=== PATIENT | female | born 1955 | race Caucasian/White ===

== ENCOUNTER 2017-04-25 11:33 | Emergency (ER) | payer BC, OTHER ==
[2017-04-25] VITALS (8 sets, daily range): BP systolic 135–177; BP diastolic 75–97; PULSE 80–88; RESP 14–17; TEMP 98.8; O2SAT 97–100
[~2017-04-25] VITALS: Ht 165.1 cm; Wt 75.0 kg
[~2017-04-25 11:33] MED LIST: CELE200 PO; CYCL-36 PO; EMBREL SQ; LORC10TA PO; LORT5TAB PO; METH2.5 PO; OYST500T77 PO; SOMA350T PO; SYNT175T PO; TAB-TAB PO
[2017-04-25] MEDS ORDERED: LORazepam 2 MG/ML VIAL IVS ONE (11:45)
[2017-04-25] MEDS ORDERED: SODIUM CHLORIDE 0.9% FLUSH 10 ML FLUSH IVF PRN (11:45)
--- NOTE | 2017-04-25 11:51 | PD ---
HPI . Altered mental status Chief Complaint: Altered mental status Time Seen by Provider: 11:39 Travel History International Travel<30 days: No Contact w/Intl Traveler<30days: No History of Present Illness HPI Patient is brought to us by [facility] following an alteration in her level of consciousness while in Bible study this morning. The medics state that the patient reportedly had a very slow and controlled fall to the ground. Since then, she has been lying on the ground with her eyes twitching. EMS reports that her behavior has been pretty much the same since that time they picked her up until the time they've dropped her off. The patient has actually started answering some questions and admits to the nurse that she took a handful of Benadryl, probably about 6, in a suicide attempt. PFSH Past Medical History Autoimmune Disease: Yes (RA) Thyroid Disease: Yes Past Surgical History Section: Yes Oral Surgery: Yes (WISDOM TEETH) Social History Alcohol Use: No Tobacco Use: No Substance Use: No Allergies-Medications (Allergen,Severity, Reaction): Coded Allergies: Penicillin (Verified Allergy, Severe, HIVES, 12/14/08) Reported Meds & Prescriptions Reported Meds & Active Scripts Active Reported Refresh Opth Drops (Polyvinyl Alcohol-Povidone Opth Drops) 1.4-0.6% Drops 1-2 Drop EACH EYE PRN PRN Restasis Opth 0.05% (Cyclosporine Opth 0.05%) 0.05% Emul 1 Drop EACH EYE BID Humira 2-Pack Inj (Adalimumab 2-Pack Inj) 40 Mg/0.8 Ml Syr 40 Mg SQ Q14D Methotrexate 2.5 Mg Tab 5 Tab PO WEEKLY [place]-3 Fish Oil/Vitamin (Fish Oil-Cholecalciferol) 1,000-1,000 Mg Cap 1 Cap PO TID Aspirin EC (Aspirin) 81 Mg Tabdr 81 Mg PO DAILY Probiotic (Lactobacillus Acidophilus) 1 Cap Cap 1 Cap PO BID Multiple Vitamin 1 Tab 1 Tab PO DAILY Losartan (Losartan Potassium) 50 Mg Tab 50 Mg PO DAILY Folic Acid 400 Mcg Tab 800 Mcg PO DAILY Mobic (Meloxicam) 15 Mg Tab 15 Mg PO DAILY Synthroid (Levothyroxine Sodium) 100 Mcg Tab 100 Mcg PO DAILY Review of Systems ROS Limitations: Poor Historian Psychiatric: Positive: Depression, Suicidal Ideations Physical Exam Narrative GENERAL: Patient is lying on the stretcher with her eyes twitching. She is cooperative with parts of her evaluation such as closing her mouth around the thermometer and assisting with removal of her clothing. SKIN: Warm and dry. HEAD: Atraumatic. Normocephalic. EYES: Pupils equal and round. ENT: No nasal bleeding or discharge. Mucous membranes pink and moist. NECK: Trachea midline. Neck is supple. CARDIOVASCULAR: Regular rate and rhythm. Heart sounds are normal. RESPIRATORY: No accessory muscle use. Lungs sound clear. GASTROINTESTINAL: Abdomen soft, non-tender, nondistended. MUSCULOSKELETAL: No obvious deformities. No edema. NEUROLOGICAL: She is moving all 4 extremities equally. PSYCHIATRIC: She reports suicidal ideation to the nurse. Data Data Last Documented VS Vital Signs Date Time Temp Pulse Resp B/P Pulse Ox O2 Delivery O2 Flow Rate FiO2 04/25/17 13:29 80 16 162/80 100 Room Air 04/25/17 11:40 98.8 Orders Complete Blood Count With Diff (04/25/17 11:39) Basic Metabolic Panel (Bmp) (04/25/17 11:39) Alcohol (Ethanol) (04/25/17 11:39) Drug Screen, Random Urine (04/25/17 11:39) Ct Brain W/O Iv Contrast(Rout) (04/25/17 ) Ecg Monitoring (04/25/17 11:39) Iv Access Insert/Monitor (04/25/17 11:39) Oximetry (04/25/17 11:39) Sodium Chloride 0.9% Flush (Ns Flush) (04/25/17 11:45) Lorazepam Inj (Ativan Inj) (04/25/17 11:45) Urinalysis - C+S If Indicated (04/25/17 11:39) Sodium Chlor 0.9% 1000 Ml Inj (Ns 1000 M (04/25/17 12:00) Basic Metabolic Panel (Bmp) (04/25/17 13:26) Urinary Catheter Management SHERRY.Q8H (04/25/17 13:51) Labs Laboratory Tests Test 04/25/17 04/25/17 04/25/17 11:58 13:01 13:37 White Blood Count 7.0 TH/MM3 Red Blood Count 4.84 MIL/MM3 Hemoglobin 14.3 GM/DL Hematocrit 42.9 % Mean Corpuscular Volume 88.7 FL Mean Corpuscular Hemoglobin 29.7 PG Mean Corpuscular Hemoglobin 33.4 % Concent Red Cell Distribution Width 13.5 % Platelet Count 220 TH/MM3 Mean Platelet Volume 8.1 FL Neutrophils (%) (Auto) 75.9 % Lymphocytes (%) (Auto) 14.6 % Monocytes (%) (Auto) 6.5 % Eosinophils (%) (Auto) 1.6 % Basophils (%) (Auto) 1.4 % Neutrophils # (Auto) 5.3 TH/MM3 Lymphocytes # (Auto) 1.0 TH/MM3 Monocytes # (Auto) 0.5 TH/MM3 Eosinophils # (Auto) 0.1 TH/MM3 Basophils # (Auto) 0.1 TH/MM3 CBC Comment DIFF FINAL Differential Comment Sodium Level 129 MEQ/L 137 MEQ/L Potassium Level 6.0 MEQ/L 3.8 MEQ/L Chloride Level 98 MEQ/L 103 MEQ/L Carbon Dioxide Level 22.4 MEQ/L 24.3 MEQ/L Anion Gap 9 MEQ/L 10 MEQ/L Blood Urea Nitrogen 8 MG/DL 7 MG/DL Creatinine 0.70 MG/DL 0.56 MG/DL Estimat Glomerular Filtration 85 ML/MIN 110 ML/MIN Rate Random Glucose 110 MG/DL 102 MG/DL Calcium Level 8.5 MG/DL 8.8 MG/DL Ethyl Alcohol Level LESS THAN 3 MG/DL Urine Collection Type CATH Urine Color STRAW Urine Turbidity CLEAR Urine pH 6.5 Urine Specific [place] 1.003 Urine Protein NEG mg/dL Urine Glucose (UA) NEG mg/dL Urine Ketones NEG mg/dL Urine Occult Blood TRACE Urine Nitrite NEG Urine Bilirubin NEG Urine Leukocyte Esterase TRACE Urine Squamous Epithelial 0-5 /hpf Cells Microscopic Urinalysis Comment CULT NOT INDICATED Urine Opiates Screen NEG Urine Barbiturates Screen NEG Urine Amphetamines Screen NEG Urine Benzodiazepines Screen NEG Urine Cocaine Screen NEG Urine Cannabinoids Screen NEG MDM Medical Decision Making Medical Screen Exam Complete: Yes Emergency Medical Condition: Yes Differential Diagnosis Differential diagnosis of altered mental status includes but is not limited to infection, electrolyte abnormality, neurological event, intoxication Narrative Course Patient presents to us via [facility] for acutely altered mental status. She reportedly suffered a slow, controlled fall to the ground while at [employer]. Since then, she has been lying with her eyes closed and twitching. She is now cooperating some and admits that she took Benadryl in a suicide attempt. The patient will be medically cleared and then referred to psychiatry for a psych screening exam. The nurse has subsequently learned that the Benadryl ingestion was actually last night. Last Impressions Head CT 04/25/17 0000 Signed Impressions: Service Date/Time: Tuesday, April 25, 2017 11:54 - CONCLUSION: 1. No focal or acute intracranial hemorrhage. 2. Old infarct in the right basal ganglia. Jamie Beckham MD CBC & BMP Diagram 04/25/17 11:58 Her initial attack as he emerged 6.0 did not make sense. She does not have any reason to have hyperkalemia. Therefore, a BMP was rechecked. 04/25/17 13:37 Drug screen and alcohol level are negative. The patient is now awake and alert and fully oriented. She states that she no longer feels suicidal. She is willing to contract with me for her safety. She further reports that she will have friends staying with her tonight. She does not want us to tell friends that she took an overdose last night. The patient reports that she has been having problems with urinary retention. She would like for us to leave the catheter in place. Diagnosis Primary Impression: Altered mental status Qualified Code: R41.82 - Altered mental status, unspecified altered mental status type Additional Impression: Urinary retention Patient Instructions: Acute Urinary Retention in Women (ED), Altered Mental Status (ED), General Instructions Disposition: 01 DISCHARGE HOME Condition: Stable Sophia Wheeler MD Apr 25, 2017 11:51
[2017-04-25] MEDS ORDERED: SODIUM CHLOR 0.9% 1000 ML INJ 1,000 ML IV ONE (12:00)
[2017-04-25 12:04] LABS: AUTOMATED NEUTROPHIL # 5.3 TH/MM3 (1.8-7.7); BASOPHIL # 0.1 TH/MM3 (0-0.2); BASOPHIL % 1.4 % (0.0-2.0); EOSINOPHIL # 0.1 TH/MM3 (0-0.4); EOSINOPHIL % 1.6 % (0.0-4.0); HEMATOCRIT 42.9 % (35.0-46.0); HEMO FLAGS DIFF FINAL; LYMPH % 14.6 % (9.0-44.0); MEAN CELL VOLUME 88.7 FL (80.0-100.0); MEAN CORPUSCULAR HEMOGLOBIN 29.7 PG (27.0-34.0); MEAN CORPUSCULAR HGB CONC 33.4 % (32.0-36.0); MONO % 6.5 % (0.0-8.0); NEUT % 75.9 % (16.0-70.0); PLATELET COUNT 220 TH/MM3 (150-450); RED BLOOD COUNT 4.84 MIL/MM3 (4.00-5.30); RED CELL DISTRIBUTION WIDTH 13.5 % (11.6-17.2)
[2017-04-25 12:15] LABS: CHLORIDE 98 MEQ/L (98-107); SODIUM (NA) 129 MEQ/L (136-145)
[2017-04-25 12:18] LABS: ANION GAP 9 MEQ/L (5-15); BICARBONATE 22.4 MEQ/L (21.0-32.0); BLOOD UREA NITROGEN 8 MG/DL (7-18)
[2017-04-25 12:21] LABS: GLOMERULAR FILTRATION RATE 85 ML/MIN (>89)
[2017-04-25] MEDS ORDERED: ASPI81TA11 PO (12:31)
[2017-04-25] MEDS ORDERED: MOBI15TA PO (12:31)
[2017-04-25] MEDS ORDERED: LEVO.1 PO (12:31)
[2017-04-25] MEDS ORDERED: HUMI40KI SQ (12:31)
[2017-04-25] MEDS ORDERED: MULTTAB67 PO (12:31)
[2017-04-25] MEDS ORDERED: METH2.5T PO (12:31)
[2017-04-25] MEDS ORDERED: LACTCAP8 PO (12:31)
[2017-04-25] MEDS ORDERED: FOLI400T PO (12:31)
[2017-04-25] MEDS ORDERED: REFRDRO EACH EYE (12:31)
[2017-04-25] MEDS ORDERED: REST0.05 EACH EYE (12:31)
[2017-04-25] MEDS ORDERED: OMEGCAP PO (12:31)
[2017-04-25] MEDS ORDERED: LOSA50TA PO (12:31)
--- NOTE | 2017-04-25 12:33 | RADRPT ---
EXAM DATE/TIME: 04/25/2017 11:54 [facility] COMPARISON: No previous studies available for comparison. INDICATIONS : Altered mental status. Syncopal episode. RADIATION DOSE: 62.07 CTDIvol (mGy) MEDICAL HISTORY : None SURGICAL HISTORY : section. ENCOUNTER: Initial ACUITY: 1 day PAIN SCALE: 0/10 LOCATION: cranial TECHNIQUE: Multiple contiguous axial images were obtained of the head. Using automated exposure control and adj ustment of the mA and/or kV according to patient size, radiation dose was kept as low as reasonably a chievable to obtain optimal diagnostic quality images. DICOM format image data is available electro nically for review and comparison. FINDINGS: CEREBRUM: The ventricles are normal for age. No evidence of midline shift, mass lesion, hemorrhage or acute in farction. There is an old infarct in the right basal ganglia. No extra-axial fluid collections are s een. POSTERIOR FOSSA: The cerebellum and brainstem are intact. The 4th ventricle is midline. The cerebellopontine angle i s unremarkable. EXTRACRANIAL: The visualized portion of the orbits is intact. SKULL: The calvaria is intact. No evidence of skull fracture. CONCLUSION: 1. No focal or acute intracranial hemorrhage. 2. Old infarct in the right basal ganglia. Jamie Beckham MD on April 25, 2017 at 12:29 Board Certified Radiologist. This report was verified electronically.
[2017-04-25 13:07] LABS: BLOOD, URINE TRACE (NEG); GLUCOSE,URINE NEG (NEG); KETONE, URINE NEG (NEG); NITRITE,URINE NEG (NEG); PH, URINE 6.5 (5.0-8.5)
[2017-04-25 13:09] LABS: METHOD OF COLLECTION CATH; URINE COLOR STRAW (YELLW/STRAW)
[2017-04-25 13:11] LABS: COMMENT (UR) CULT NOT INDICATED; CULTURE IF INDICATED CULT NOT INDICATED; SQUAMOUS EPITHELIAL CELL URINE 0-5 /hpf (0-5)
[2017-04-25 13:31] LABS: AMPHETAMINE, URINE NEG (NEG)
[2017-04-25 13:33] LABS: BARBITURATES, URINE NEG (NEG)
[2017-04-25 13:37] LABS: COCAINE, URINE NEG (NEG)
[2017-04-25 13:58] LABS: BICARBONATE 24.3 MEQ/L (21.0-32.0); POTASSIUM 3.8 MEQ/L (3.5-5.1)
[2017-04-26 06:38] VITALS: BP 141/77; PULSE 86; RESP 18; O2SAT 97
--- NOTE | 2017-04-26 12:58 | PD ---
History of Present Illness Chief Complaint: Syncope/Near-Syncope Time Seen by Provider: 10:00 Travel History International Travel<30 Days: No Contact w/Intl Traveler<30days: No Known affected area: No Legal Status Legal Status: Rodriguez Act Rodriguez Act Signed By: DR BASS History of Present Illness: This is a 62-year-old female with a recent history of taking approximately 625 mg Benadryl tablets the night before last. She states she did this not as a suicide attempt but to help her stop leaking urine. Patient reports she had a urinary tract infection in the last several weeks and since then she is having urinary leakage. She is seeing a urologist but she does not understand why this is happening and what needs to occur to treat it. She states she was hot and sikhism yesterday and reports a near syncopal episode. This physician read the emergency department record that insinuates the patient was overly dramatic in her behavior. At this time, however, the patient is calm, pleasant and cooperative. She is answering questions and describing her dissatisfaction with her physical issues. She denies any suicidal or homicidal ideation, plan or intent. She does admit to having those thoughts in the recent past. Her cognition is intact and she has no psychosis. She is verbally rebecca for safety. Her only family member is in [place]. She would like to return to her urologist as soon as possible. PFSH Past Medical History Arthritis: Yes (RA) Autoimmune Disease: Yes (RA) Genitourinary: Yes (TREATED FOR URINARY RETENTION) Immunizations Current: Yes Thyroid Disease: Yes Past Surgical History Section: Yes Oral Surgery: Yes (WISDOM TEETH) Psychiatric History Psychiatric History Hx Psychiatric Treatment: DENIED History of Inpatient Treatment: No Guns or firearms in home: No Social History Hx Alcohol Use: No Hx Tobacco Use: No Hx Substance Use: No Hx of Substance Use Treatment: No Allergies-Medications (Allergen,Severity, Reaction): Coded Allergies: Penicillin (Verified Allergy, Severe, HIVES, 04/25/17) Reported Meds & Prescriptions Reported Meds & Active Scripts Active Reported Refresh Opth Drops (Polyvinyl Alcohol-Povidone Opth Drops) 1.4-0.6% Drops 1-2 Drop EACH EYE PRN PRN Restasis Opth 0.05% (Cyclosporine Opth 0.05%) 0.05% Emul 1 Drop EACH EYE BID Humira 2-Pack Inj (Adalimumab 2-Pack Inj) 40 Mg/0.8 Ml Syr 40 Mg SQ Q14D Methotrexate 2.5 Mg Tab 5 Tab PO WEEKLY [place]-3 Fish Oil/Vitamin (Fish Oil-Cholecalciferol) 1,000-1,000 Mg Cap 1 Cap PO TID Aspirin EC (Aspirin) 81 Mg Tabdr 81 Mg PO DAILY Probiotic (Lactobacillus Acidophilus) 1 Cap Cap 1 Cap PO BID Multiple Vitamin 1 Tab 1 Tab PO DAILY Losartan (Losartan Potassium) 50 Mg Tab 50 Mg PO DAILY Folic Acid 400 Mcg Tab 800 Mcg PO DAILY Mobic (Meloxicam) 15 Mg Tab 15 Mg PO DAILY Synthroid (Levothyroxine Sodium) 100 Mcg Tab 100 Mcg PO DAILY Review of Systems Except as stated in HPI: all other systems reviewed are Neg Exam Alert: Yes [place]: Person, Place, Date, Situation Mood: Calm Affect: Appropriate Speech: Clear, Logical Eye Contact: Normal Memory Intact: Immediate, Recent, Remote Insight/Judgement Adequate MDM Medical Decision Making Medical Record Reviewed: Yes Assessment/Plan This is a 62-year-old female with recent history of overdose on 625 mg Benadryl tablets the night before last, presenting yesterday after a near syncopal episode in sikhism. Patient is distraught and distressed about her current urinary incontinence problem. This physician's nurse called [facility], where the patient is being treated and obtained an earlier appointment. With this information, the patient wants to be seen there and would prefer not to be admitted to psychiatry. Even though she had a recent overdose, she is currently rebecca for safety and reports no suicidal or homicidal ideation, plan or intent. No psychotic symptoms and cognition is intact. Patient is competent to make these decisions. Orders Basic Metabolic Panel (Bmp) (04/25/17 13:26) Urinary Catheter Management SHERRY.Q8H (04/25/17 13:51) Diet Regular Basic (04/26/17 Breakfast) Psych Screen (04/26/17 06:54) Results Vital Signs Date Time Temp Pulse Resp B/P Pulse Ox O2 Delivery O2 Flow Rate FiO2 04/26/17 06:38 86 18 141/77 97 Room Air 04/25/17 19:45 81 17 140/83 97 Room Air 04/25/17 17:45 87 15 135/75 97 Room Air 04/25/17 15:10 85 15 156/80 99 Room Air 04/25/17 14:10 82 15 163/96 100 Room Air 04/25/17 13:29 80 16 162/80 100 Room Air Laboratory Tests Test 04/25/17 04/25/17 13:01 13:37 Urine Collection Type CATH Urine Color STRAW Urine Turbidity CLEAR Urine pH 6.5 Urine Specific [place] 1.003 Urine Protein NEG Urine Glucose (UA) NEG Urine Ketones NEG Urine Occult Blood TRACE Urine Nitrite NEG Urine Bilirubin NEG Urine Leukocyte Esterase TRACE Urine Squamous Epithelial 0-5 Cells Microscopic Urinalysis Comment CULT NOT INDICATED Urine Opiates Screen NEG Urine Barbiturates Screen NEG Urine Amphetamines Screen NEG Urine Benzodiazepines Screen NEG Urine Cocaine Screen NEG Urine Cannabinoids Screen NEG Sodium Level 137 Potassium Level 3.8 Chloride Level 103 Carbon Dioxide Level 24.3 Anion Gap 10 Blood Urea Nitrogen 7 Creatinine 0.56 Estimat Glomerular Filtration 110 Rate Random Glucose 102 Calcium Level 8.8 Diagnosis Primary Impression: Adjustment disorder with depressed mood Additional Impression: Urinary incontinence Referrals: Primary Care Physician call for appointment Departure Forms: Tests/Procedures Patient Instructions: General Instructions, Acute Urinary Retention in Women ( ED), Altered Mental Status (ED) Disposition: 01 DISCHARGE HOME Condition: Stable Problem Qualifiers Tyler Solis MD Apr 26, 2017 12:58
== END 2017-04-26 13:46 | disposition home or self-care (01) ==
LOC: PHED 11:33 → NEPD 04-26 13:46
DX: F43.21 Adjustment disorder with depressed mood (principal); R32 Unspecified urinary incontinence; Z79.899 Other long term (current) drug therapy
CPT/HCPCS: 70450; 80048; 80307; 81001; 85025; J7030